=== PATIENT | male | born 1995 | race Caucasian/White ===

== ENCOUNTER 2024-01-11 06:50 | Emergency (ER) | payer OTHER ==
[2024-01-11] MEDS ORDERED: Bupivacaine 0.25% 10 ML VIAL ONE (07:15)
== END 2024-01-11 08:13 | disposition home or self-care (01) ==
LOC: ERS 06:50
DX: S61.101A Unspecified open wound of right thumb with damage to nail, initial encounter (principal); W31.2XXA Contact with powered woodworking and forming machines, initial encounter
CPT/HCPCS: 64450; J0665